=== PATIENT | male | born 1950 | race Caucasian/White ===

== ENCOUNTER 2018-10-06 10:34 | Emergency (ER) | payer OTHER ==
[~2018-10-06] VITALS: Ht 170.2 cm; Wt 76.2 kg
[2018-10-06] MEDS ORDERED: XARELTO20 MG (11:02)
[2018-10-06] MEDS ORDERED: DILANTIN100 MG (11:02)
[2018-10-06] MEDS ORDERED: LIPITOR40 MG (11:03)
[2018-10-06] MEDS ORDERED: COZAAR100 MG (11:03)
[2018-10-06] MEDS ORDERED: METOPROLOL SUCC25 MG (11:03)
[2018-10-06] MEDS ORDERED: FOLIC ACID1 MG (11:03)
== END 2018-10-06 17:39 | disposition home or self-care (01) ==
LOC: ER 10:34
DX: K52.89 Other specified noninfective gastroenteritis and colitis (principal); R42 Dizziness and giddiness

== ENCOUNTER 2020-06-26 07:21 | Inpatient (IN) | payer OTHER ==
[~2020-06-26] VITALS: Ht 170.2 cm; Wt 77.6 kg
[~2020-06-26 07:21] MED LIST: COZAAR100 MG; DILANTIN100 MG; FOLIC ACID1 MG; LIPITOR40 MG; METOPROLOL SUCC25 MG; XARELTO20 MG
[2020-06-26] MEDS ORDERED: GLYCOTROL CAPS1 EACH (07:47)
== END 2020-07-01 14:30 | disposition home or self-care (01) | DRG 65 ==
LOC: ER 07:21 → MEDJ 21:30
PROVIDERS: ADMIT Specialist; ATTEND Specialist
PROC: BW28ZZZ Computerized Tomography (CT Scan) of Head (ICD-10-PCS; 2020-06-26)
PROC: B348ZZZ Ultrasonography of Bilateral Internal Carotid Arteries (ICD-10-PCS; 2020-06-26)
PROC: B24BYZZ Ultrasonography of Heart with Aorta using Other Contrast (ICD-10-PCS; 2020-06-26)
PROC: 4A12X4Z Monitoring of Cardiac Electrical Activity, External Approach (ICD-10-PCS; principal; 2020-06-27)
PROC: BW38Y0Z Magnetic Resonance Imaging (MRI) of Head using Other Contrast, Unenhanced and Enhanced (ICD-10-PCS; 2020-06-27)
DX: I63.9 Cerebral infarction, unspecified (principal); I48.20 Chronic atrial fibrillation, unspecified; G81.91 Hemiplegia, unspecified affecting right dominant side; G40.909 Epilepsy, unspecified, not intractable, without status epilepticus; R47.01 Aphasia; I10 Essential (primary) hypertension; Z86.73 Personal history of transient ischemic attack (TIA), and cerebral infarction without residual deficits; Z20.822 Contact with and (suspected) exposure to COVID-19
CPT/HCPCS: 70545

== ENCOUNTER → 2021-11-30 | Emergency (ER) | payer OTHER ==
[~2021-11-30] VITALS: Ht 170.2 cm; Wt 71.2 kg
[~2021-11-30] MED LIST changes: +GLYCOTROL CAPS1 EACH; +KEPPRA500 MG PO; +PEPCID AC20 MG PO; +PHOSPHASAL TAB1 EACH PO
== END | disposition home or self-care (01) ==
LOC: ER 12:26
DX: N39.0 Urinary tract infection, site not specified (principal)

== ENCOUNTER → 2025-02-09 | Emergency (ER) | payer OTHER ==
[~2025-02-09] MED LIST changes: +AMIODARONE HCL100 MG PO
== END | disposition left against medical advice (07) ==
LOC: ER 07:44
DX: Z53.21 Procedure and treatment not carried out due to patient leaving prior to being seen by health care provider (principal)

== ENCOUNTER 2025-03-02 16:46 | Emergency (ER) | payer OTHER ==
[~2025-03-02] VITALS: Ht 172.7 cm; Wt 68.0 kg
[2025-03-02] MEDS ORDERED: JARDIANCE10 MG (17:45)
[2025-03-02] MEDS ORDERED: ONDANSETRON HCL 2 MG/ML VIAL IV STA (19:36)
[2025-03-02] MEDS ORDERED: LACTOBACILLUS ACIDOPHILUS 1 CAP CAP PO STA (19:36)
[2025-03-02] MEDS ORDERED: FAMOTIDINE/PF 20 MG/2 ML VIAL IV STA (19:36)
[2025-03-02] MEDS ORDERED: 0.9 % SODIUM CHLORIDE 1,000 ML IV SCH (19:45)
[2025-03-02 21:17] LABS: BASO % 0.1 % (0.1-1.2); EOS # 0.02 (0.04-0.54); EOS % 0.1 % (0.7-7.0); LYMPH # 1.02 (1.18-3.74); LYMPH % 7.6 % (19.3-53.1); MEAN PLATELET VOLUME 10.80 fl (9.4-12.4); MONO # 0.61 (0.24-0.82); MONO % 4.5 % (4.7-12.5); NEUT # 11.76 (1.56-6.13); NEUT % 87.4 % (34.0-71.1); RED CELL DISTRIBUTION WIDTH 13.2 % (11.6-14.4)
[2025-03-02] MEDS ORDERED: ONDANSETRON HCL 2 MG/ML VIAL ONE (21:54)
[2025-03-02] MEDS ORDERED: LACTOBACILLUS ACIDOPHILUS 1 CAP CAP PO ONE (21:55)
[2025-03-02] MEDS ORDERED: FAMOTIDINE/PF 20 MG/2 ML VIAL ONE (21:55)
[2025-03-02 22:13] LABS: ALT/SGPT 40.0 U/L (12-78); AST/SGOT 21.0 U/L (15-37); BILIRUBIN TOTAL 1.33 mg/dL (0.3-1.2); BUN CREA RATIO 14.0 (7.0-25.0); CREATININE SERUM 1.53 mg/dL (0.70-1.30); GFR 44.71; GLOBULINA 3.5 G/DL (2.4-3.5); GLUCOSE FASTING 104.0 mg/dL (65-100); OSMOLALITY SERUM 283.0 MOSM/KG (275-295)
[2025-03-02 23:13] LABS: URINE APPEARANCE Clear; URINE BILIRRUBIN Negative (NEGATIVE); URINE BLOOD Negative; URINE COLOR Yellow; URINE KETONE 15 (NEGATIVE); URINE LEUKOCYTE Negative; URINE NITRATE Negative; URINE PROTEIN Negative (NEGATIVE); URINE UROBILINOGEN 0.2 E.U./dl
[2025-03-02 23:18] LABS: URINE BACTERIA 77.9 uL (0.0-1933); URINE CAST 1.90 uL (0.0-1.40); URINE EPITHELIAL CELLS 5.8 uL (0.0-38.8); URINE RBC 4.9 uL (0.0-20.8); URINE WBC 6.7 uL (0.0-23.2)
[2025-03-02 23:40] LABS: URINE GLUCOSE >=1000 MG/DL (NEGATIVE)
== END 2025-03-03 02:28 | disposition home or self-care (01) ==
LOC: ER 16:46
PROVIDERS: Physician Assistant Medical
DX: K52.89 Other specified noninfective gastroenteritis and colitis (principal); E86.0 Dehydration; I48.91 Unspecified atrial fibrillation; Z86.73 Personal history of transient ischemic attack (TIA), and cerebral infarction without residual deficits; I11.9 Hypertensive heart disease without heart failure